=== PATIENT | female | born 1930 | race Caucasian/White ===

== ENCOUNTER 2018-12-20 14:55 | Emergency (ER) | payer MEDICARE, BC ==
[2018-12-20 15:12] VITALS: BP 209/91; PULSE 76; RESP 16; TEMP 97.6
--- NOTE | 2018-12-20 15:48 | ED ---
General Adult HPI - General Chief complaint: Head Injury Stated complaint: Fall Time Seen by Provider: 12/20/18 15:05 Source: patient, RN notes reviewed Mode of arrival: ambulatory Limitations: no limitations - History of Present Illness Initial comments: This is an 88-year-old female who presents emergency department stating that she tripped while coming out of a store and fell and hit her face on the floor. Patient states she has no pain she was not dazed and she had no loss of consciousness. Patient denies neck pain. Patient denies any numbness weakness. Patient does have a bloody nose out of the left naris. Patient states her nose does hurt to palpate but does not hurt if she is not touching it. Patient also has ecchymosis under both eyes. Patient denies any blood thinners. Patient denies any chest or back pain. Patient denies any abdominal pain. Patient denies any upper or lower extremity pain. His any of the sites of bleeding. - Related Data Home Medications Medication Instructions Recorded Confirmed Metoprolol Succinate [Toprol XL] 50 mg PO DAILY 11/11/15 12/20/18 Multivitamin [Multivitamins Adult 1 tab PO DAILY 11/11/15 12/20/18 Gummies] Previous Rx's Medication Instructions Recorded Aspirin 81 mg PO DAILY chew 11/13/15 Cephalexin [Keflex] 500 mg PO Q6HR 5 Days #20 cap 12/20/18 Allergies Allergy/AdvReac Type Severity Reaction Status Date / Time No Known Allergies Allergy Verified 12/20/18 15:40 Review of Systems ROS Statement: Those systems with pertinent positive or pertinent negative responses have been documented in the HPI. ROS Other: All systems not noted in ROS Statement are negative. Past Medical History Past Medical History: Coronary Artery Disease (CAD), GERD/Reflux, Hypertension History of Any Multi-Drug Resistant Organisms: None Reported Past Surgical History: Bowel Resection, Coronary Bypass/CABG, Joint Replacement Additional Past Surgical History / Comment(s): vein stripping, 5 hip replacements, 3 on right side and one on left, cabg 2003 Past Psychological History: No Psychological Hx Reported Smoking Status: Never smoker Past Alcohol Use History: None Reported Past Drug Use History: None Reported - Past Family History Mother Family Medical History: Dementia Father Family Medical History: No Reported History General Exam - General Exam Comments Initial Comments: GENERAL: Patient is well-developed and well-nourished. Patient is nontoxic and well- hydrated and is in mild distress. ENT: Neck is soft and supple. No significant lymphadenopathy is noted. Oropharynx is clear. Moist mucous membranes. Neck has full range of motion without eliciting any pain. EYES: The sclera were anicteric and conjunctiva were pink and moist. Extraocular movements were intact and pupils were equal round and reactive to light. Patien t has ecchymosis in the infraorbital region. Patient has tenderness of the nasal bone. Patient also has epistaxis out of the left naris. PULMONARY: Unlabored respirations. Good breath sounds bilaterally. No audible rales rhonchi or wheezing was noted. CARDIOVASCULAR: There is a regular rate and rhythm without any murmurs gallops or rubs. ABDOMEN: Soft and nontender with normal bowel sounds. No palpable organomegaly was noted. There is no palpable pulsatile mass. SKIN: Skin is clear with no lesions or rashes and otherwise unremarkable. NEUROLOGIC: Patient is alert and oriented x3. Cranial nerves II through XII are grossly intact. Motor and sensory are also intact. Normal speech, volume and content. Symmetrical smile. MUSCULOSKELETAL: Normal extremities with adequate strength and full range of motion. LYMPHATICS: No significant lymphadenopathy is noted PSYCHIATRIC: Normal psychiatric evaluation. Limitations: no limitations Course Vital Signs 12/20/18 15:07 Temperature 97.6 F Pulse Rate 76 Respiratory 16 Rate Blood Pressure 209/91 O2 Sat by Pulse 98 Oximetry Medical Decision Making - Medical Decision Making CT of the head and C-spine are normal. Facial bone x-rays show a fracture of the nasal bone. Patient had a clamp on her nose and ice was applied. Bleeding stopped but intermittently there will be a few drops of blood. Disposition Clinical Impression: Epistaxis, Nasal bones, open fracture Disposition: HOME SELF-CARE Condition: Good Instructions (If sedation given, give patient instructions): Nasal Fracture (ED) Prescriptions: Cephalexin [Keflex] 500 mg PO Q6HR 5 Days #20 cap Is patient prescribed a controlled substance at d/c from ED?: No Referrals: Magdy Santos DO [Doctor of Osteopathic Medicine] - 12/23/18
--- NOTE | 2018-12-20 17:04 | CT ---
EXAMINATION TYPE: CT facial bones wo con DATE OF EXAM: 12/20/2018 COMPARISON: None HISTORY: Fall today with facial injury. CT DLP: 1062 mGycm Automated exposure control for dose reduction was used. TECHNIQUE: CT scan of the sinuses is performed without contrast, axial images are obtained, coronal r eformatted images are also reviewed. FINDINGS: The mandibular ring is intact. Dramatic arches appear normal. Temporomandibular joints appe ar intact. The maxilla is intact. There is comminuted fracture of the nasal bone with some deviation to the left side. There is fluid level left maxillary sinus. There is no evidence of a blowout fractu re. Orbital margins are intact. There is no evidence of orbital mass. There is some increased density in the anterior nasopharynx consistent with blood clot and debris. Temporal bones appear intact. IMPRESSION: Nasal bone fracture. Increased density in the nasopharynx consistent with blood clot and debris. Small fluid level left maxillary sinus could relate to acute hemorrhage.
--- NOTE | 2018-12-20 17:06 | CT ---
EXAMINATION TYPE: CT brain scot umana DATE OF EXAM: 12/20/2018 COMPARISON: None HISTORY: Fall today with facial injury. CT DLP: 1062 mGycm Automated exposure control for dose reduction was used. TECHNIQUE: CT scan of the head and cervical spine are performed without contrast. FINDINGS: There is some cerebral cortical atrophy. There is no mass effect nor midline shift. There is no sign of intracranial hemorrhage. There is hypodensity in the periventricular white matter and more noticeable around the frontal horns of the lateral ventricles. The calvarium is intact. Cervical vertebra show fairly normal alignment. There is some degenerative disc space narrowing at C5 -6 C6-7 with spurring of the endplates. There is hypertrophic multilevel cervical facet arthropathy. The skull base is intact. IMPRESSION: Spondylotic changes in the cervical spine. No fracture. Cerebral atrophy and chronic small vessel ischemia. No acute intracranial abnormality.
[2018-12-20] MEDS ORDERED: DIPH,PERTUS(ACELL)TETVAC-LF 0.5 ML VIAL IM ONE (17:23)
[2018-12-20] MEDS ORDERED: CEPHALEXIN 500 MG CAP PO STA (17:24)
== END 2018-12-20 18:11 | disposition home or self-care (01) ==
LOC: EC 14:55
DX: S02.2XXB Fracture of nasal bones, initial encounter for open fracture (principal); R04.0 Epistaxis; I25.10 Atherosclerotic heart disease of native coronary artery without angina pectoris; I10 Essential (primary) hypertension; K21.9 Gastro-esophageal reflux disease without esophagitis; Z23 Encounter for immunization; Z79.899 Other long term (current) drug therapy; Z95.1 Presence of aortocoronary bypass graft; Z96.649 Presence of unspecified artificial hip joint; W01.198A Fall on same level from slipping, tripping and stumbling with subsequent striking against other object, initial encounter
CPT/HCPCS: 70450; 70486; 72125; 90471; 90715; 99283